=== PATIENT | female | born 2000 | race Caucasian/White ===

== ENCOUNTER 2020-01-31 18:10 | Emergency (ER) | payer OTHER ==
[2020-01-31] MEDS ORDERED: Acetaminophen/HYDROcodone 325-5 MG Tab PO ONE (18:48)
[2020-01-31] MEDS ORDERED: cefTRIAXone 250 MG in Lidocaine 1% 1 ML IM ONE (18:49)
[2020-01-31] MEDS ORDERED: Azithromycin 250 MG Tab PO STA (18:49)
[2020-01-31] MEDS ORDERED: Lidocaine 1% PF 2 ML SDV INJECT ONE (18:50)
[2020-01-31] MEDS ORDERED: valACYclovir 500 MG Tab PO ONE (18:50)
[2020-01-31] MEDS ORDERED: Lidocaine 5% Oint 35.44 GM Tube TOP ONE (18:52)
--- NOTE | 2020-01-31 18:56 | EDM.PDOC ---
ED HPI GENERAL MEDICAL PROBLEM - General Chief Complaint: General Stated Complaint: WOULD NOT DISCLOSE COMPLAINT Time Seen by Provider: 01/31/20 18:30 Source of Information: Reports: Patient History Limitations: Reports: No Limitations - History of Present Illness INITIAL COMMENTS - FREE TEXT/NARRATIVE: HISTORY AND PHYSICAL: History of present illness: Patient is a 19-year-old transgender female, who identifies as male - prefers to be called "Will", that presents to the ED with complaints of urinary retention and vaginal lesions. Reports that he and his boyfriend had unprotected sex with another male approximately 1 to 2 weeks ago. Since that time they both have noted some genital discharge. He had gone to his primary care provider and had blood, gonorrhea/chlamydia swab, and analysis done. He states that the STD screening has not returned but was given 3-day course of oral antibiotic for a UTI, taking the last dose yesterday. Today he noticed multiple lesions to his labia Review of systems: As per history of present illness and below otherwise all systems reviewed and negative. Past medical history: As per history of present illness and as reviewed below otherwise noncontributory. Surgical history: As per history of present illness and as reviewed below otherwise noncontributory. Social history: See social history for further information Family history: As per history of present illness and as reviewed below otherwise noncontributory. Physical exam: General: Well-developed and well-nourished 19-year-old female/male. And oriented. Nontoxic-appearing and in no acute distress. HEENT: Atraumatic, normocephalic, pupils equal and reactive bilaterally, negative for conjunctival pallor or scleral icterus, mucous membranes moist, trachea midline. No drooling or trismus noted. No meningeal signs. No hot potato voice noted. Lungs: Clear to auscultation, breath sounds equal bilaterally, chest nontender. Heart: S1S2, regular rate and rhythm without overt murmur Abdomen: Soft, nondistended, nontender. Negative for masses or hepatosplenomegaly. Negative for costovertebral tenderness. Pelvis: Stable nontender. Genitourinary: This was done with consent and a retail sales advisor at the bedside. Patient has multiple open lesions to the external genitalia, are very painful to touch. Copious amounts of vaginal discharge, clear thin and opaque. Skin: Intact, warm, dry. No lesions or rashes noted. Extremities: Atraumatic, moves all extremities per self without difficulty or deficits, negative for cords or calf pain. Neurovascular unremarkable. Neuro: Awake, alert, oriented. Cranial nerves II through XII unremarkable. Cerebellum unremarkable. Motor and sensory unremarkable throughout. Exam nonfocal. Notes: Bladder scanner shows over 900mls. Pelvic exam without speculum was done, samples/swabs sent to lab. At this time he would like to attempt oral pain medication and see if he can void on his own. He refusing straight/edmonds catheter. Patient was able to attempt to void twice, this was only small amounts. States that it is too painful to void, becomes tearful and anxious. A Edmonds catheter was placed to drain bladder. In small amounts approximately 1300 was drained from the bladder over a period of 15-20 minutes. Patient feels much better. We talked about leaving the catheter in place; he refuses. Signs and symptoms that would prompt him to return to the emergency room. Supportive care measures were reviewed and discussed. Voices understanding and is agreeable to plan of care. Denies any further questions or concerns at this time. Diagnostics: WALLACE, UA, HCGU, HSV Therapeutics: Valacyclovir, Lidocaine 5%, Rocephin/Azithromycin, [place] Prescription: Valacyclovir, Bactrim DS Impression: Urinary retention Herpes UTI Plan: 1. Please abstain from sexual intercourse until ALL the lab results have returned. Always use protection to minimized risk of STD exposure 2. Take the medications as directed. Herpes is not curable, you can take medications to help alleviate symptoms and prevent outbreaks. A short course has been prescribed to day; but further managed will need to be done by your primary care provider. 3. Today we gave you Rocephin and Azithromycin (treatment for Gonorrhea and Chlamydia). 4. Sitz baths may help the discomfort. Tylenol and/or Ibuprofen as needed for pain. 5. Please follow-up with your primary care provider as we discussed. Return to the ED as needed and as discussed. Definitive disposition and diagnosis as appropriate pending reevaluation and review of above. Bladder Pain Score (Numeric/FACES): 10 - Related Data Allergies Allergy/AdvReac Type Severity Reaction Status Date / Time banana Allergy Other Verified 01/31/20 18:30 latex Allergy Other Verified 01/31/20 18:30 Home Meds: Home Meds Amitriptyline [Elavil] 50 mg PO BEDTIME 01/31/20 [History] Escitalopram [Lexapro] 20 mg PO DAILY 01/31/20 [History] Sulfamethoxazole/Trimethoprim [Bactrim Ds Tablet] 1 each PO BID 7 Days #14 tablet 01/31/20 [Rx] buPROPion [Wellbutrin SR] 300 mg PO DAILY 01/31/20 [History] valACYclovir [Valtrex] 1,000 mg PO BID 10 Days #20 tab 01/31/20 [Rx] Past Medical History - Past Health History Medical/Surgical History: Denies Medical/Surgical History HEENT History: Reports: None Cardiovascular History: Reports: None Respiratory History: Reports: None Gastrointestinal History: Reports: None Genitourinary History: Reports: None BREAST SURGEON History: Reports: None Musculoskeletal History: Reports: None Neurological History: Reports: None Psychiatric History: Reports: None Endocrine/Metabolic History: Reports: None Hematologic History: Reports: None Immunologic History: Reports: None Oncologic (Cancer) History: Reports: None Dermatologic History: Reports: None - Infectious Disease History Infectious Disease History: Reports: Chicken Pox, Influenza - Past Surgical History Head Surgeries/Procedures: Reports: None HEENT Surgical History: Reports: Adenoidectomy, Tonsillectomy Cardiovascular Surgical History: Reports: None Respiratory Surgical History: Reports: None GI Surgical History: Reports: None Female Surgical History: Reports: None Endocrine Surgical History: Reports: None Neurological Surgical History: Reports: None Musculoskeletal Surgical History: Reports: Other (See Below) Other Musculoskeletal Surgeries/Procedures:: leg sx Oncologic Surgical History: Reports: None Dermatological Surgical History: Reports: None Social & Family History - Family History Family Medical History: Noncontributory - Tobacco Use Smoking Status *Q: Current Every Day Smoker Years of Tobacco use: 5 Packs/Tins Daily: 0.7 - Caffeine Use Caffeine Use: Reports: Soda - Recreational Drug Use Recreational Drug Use: Yes Recreational Drug Type: Reports: Marijuana/Hashish Recreational Drug Use Frequency: Rarely ED ROS GENERAL - Review of Systems Review Of Systems: Comprehensive ROS is negative, except as noted in HPI. ED EXAM, GENERAL - Physical Exam Exam: See Below (See dictation) Course - Vital Signs Last Recorded V/S: Last Vital Signs Temp 96.8 F L 01/31/20 18:32 Pulse 133 H 04/26/20 18:32 Resp 18 01/31/20 18:32 BP 166/97 H 01/31/20 18:32 Pulse Ox 98 01/31/20 18:32 - Orders/Labs/Meds Orders: Active Orders 24 hr Category Date Time Status Bladder Scan [RC] ASDIRECTED Care 01/31/20 18:46 Active Edmonds Catheter Insertion [Insert Urinary Catheter] [OM. Care 01/31/20 19:00 Ordered PC] Q24H Urinary Catheter Assessment [RC] ASDIRECTED Care 01/31/20 18:47 Active CULTURE URINE [RM] Stat Lab 01/31/20 19:41 Received HSV 1/2 PCR [REF] Stat Lab 01/31/20 18:46 Received Labs: Laboratory Tests 01/31/20 01/31/20 01/31/20 Range/Units 18:40 19:41 19:41 Urine Color YELLOW Urine Appearance CLOUDY Urine pH 6.5 (5.0-8.0) Ur Specific [place] >= 1.030 (1.001-1.035) Urine Protein 100 H (NEGATIVE) mg/dL Urine Glucose (UA) NEGATIVE (NEGATIVE) mg/dL Urine Ketones NEGATIVE (NEGATIVE) mg/dL Urine Occult Blood MODERATE H (NEGATIVE) Urine Nitrite NEGATIVE (NEGATIVE) Urine Bilirubin NEGATIVE (NEGATIVE) Urine Urobilinogen 0.2 (<2.0) EU/dL Ur Leukocyte Esterase LARGE H (NEGATIVE) Urine RBC 5-10 (0-2/HPF) Urine WBC 12-20 (0-5/HPF) Ur Epithelial Cells RARE (NONE-FEW) Urine Bacteria 1+ H (NEGATIVE) Urine Mucus LIGHT (NONE-MOD) Urine HCG, Qual NEGATIVE (NEGATIVE) Geena species DNA NEGATIVE (NEGATIVE) Gardnerella DNA Probe NEGATIVE (NEGATIVE) Trichomonas DNA Probe NEGATIVE (NEGATIVE) Meds: Medications Discontinued Medications Generic Name Dose Route Start Last Admin Trade Name Freq PRN Reason Stop Dose Admin Hydrocodone Bitart/Acetaminophen 1 tab 01/31/20 18:48 01/31/20 19:03 [place] 325-5 Mg PO 01/31/20 18:49 1 tab ONETIME ONE Administration Azithromycin 1,000 mg 01/31/20 18:49 01/31/20 19:24 Zithromax PO 01/31/20 18:50 1,000 mg NOW STA Administration Ceftriaxone Sodium 250 mg/ 1 mls @ 1 mls/sec 01/31/20 18:49 01/31/20 19:24 Lidocaine HCl IM 01/31/20 18:50 1 mls/sec ONETIME ONE Administration Lidocaine HCl 2 ml 01/31/20 18:50 01/31/20 19:20 Xylocaine-Mpf 1% INJECT 01/31/20 18:51 Not Given ONETIME ONE Lidocaine HCl 1 gm 01/31/20 18:52 01/31/20 19:50 Lidocaine 5% TOP 01/31/20 18:53 1 dose ONETIME ONE Administration Valacyclovir HCl 1,000 mg 01/31/20 18:50 01/31/20 19:25 Valtrex PO 01/31/20 18:51 1,000 mg ONETIME ONE Administration Departure - Departure Time of Disposition: 20:49 Disposition: Home, Self-Care 01 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 This information is to outline your options for follow-up care. We provide all patients seen in our emergency department with a follow-up referral. The need for follow-up, as well as the timing and circumstances, are variable depending upon the specifics of your emergency department visit. If you don't have a primary care physician on staff, we will provide you with a referral. We always advise you to contact your personal physician following an emergency department visit to inform them of the circumstance of the visit and for follow-up with them and/or the need for any referrals to a consulting specialist. The emergency department will also refer you to a specialist when appropriate. This referral assures that you have the opportunity for follow-up care with a specialist. All of these measure are taken in an effort to provide you with optimal care, which includes your follow-up. Under all circumstances we always encourage you to contact your private physician who remains a resource for coordinating your care. When calling for follow-up care, please make the office aware that this follow-up is from your recent emergency room visit. If for any reason you are refused follow-up, please contact the [facility] Emergency Department at and asked to speak to the emergency department charge nurse. [facility] Primary [facility] [address] [place] [address] [facility] [address] [place] [id number] 1. Please abstain from sexual intercourse until ALL the lab results have returned. Always use protection to minimized risk of STD exposure 2. Herpes is not curable, you can spread this to other people. Medications is available to help alleviate symptoms and prevent outbreaks. A short course has been prescribed to day; but further managed will need to be done by your primary care provider. 3. Take the medications as directed. Today we gave you Rocephin and Azithromycin (treatment for Gonorrhea and Chlamydia). The Bactrim is for your UTI. 4. Sitz baths may help the discomfort. Tylenol and/or Ibuprofen as needed for pain. 5. Please follow-up with your primary care provider as we discussed. Return to the ED as needed and as discussed. Sepsis Event Note - Evaluation Sepsis Screening Result: No Definite Risk - Focused Exam Vital Signs: Vital Signs Temp Pulse Resp BP Pulse Ox 01/31/20 18:32 96.8 F L 133 H 18 166/97 H 98 Date Exam was Performed: 01/31/20 Time Exam was Performed: 20:45 - My Orders Last 24 Hours: My Active Orders 01/31/20 18:46 Bladder Scan [RC] ASDIRECTED HSV 1/2 PCR [REF] Stat 01/31/20 18:47 Urinary Catheter Assessment [RC] ASDIRECTED 01/31/20 19:00 Edmonds Catheter Insertion [Insert Urinary Catheter] [OM.PC] Q24H 01/31/20 19:41 CULTURE URINE [RM] Stat - Assessment/Plan Last 24 Hours: My Active Orders 01/31/20 18:46 Bladder Scan [RC] ASDIRECTED HSV 1/2 PCR [REF] Stat 01/31/20 18:47 Urinary Catheter Assessment [RC] ASDIRECTED 01/31/20 19:00 Edmonds Catheter Insertion [Insert Urinary Catheter] [OM.PC] Q24H 01/31/20 19:41 CULTURE URINE [] Stat
== END 2020-01-31 21:10 | disposition home or self-care (01) ==
LOC: MW.ED 18:10
DX: R33.9 Retention of urine, unspecified (principal); B00.9 Herpesviral infection, unspecified; N39.0 Urinary tract infection, site not specified; F17.210 Nicotine dependence, cigarettes, uncomplicated; Z91.018 Allergy to other foods; Z91.040 Latex allergy status; Z79.899 Other long term (current) drug therapy
CPT/HCPCS: 51702; 51798; 81001; 81025; 87086; 87480; 87510; 87529; 87660; 96372; 99283; A9270; J0696; J2001; 99284

== ENCOUNTER 2020-02-01 20:01 | Emergency (ER) | payer OTHER ==
--- NOTE | 2020-02-01 20:30 | EDM.PDOC ---
ED HPI GENERAL MEDICAL PROBLEM - General Chief Complaint: Genitourinary Problem Stated Complaint: DID NOT DISCLOSE Time Seen by Provider: 02/01/20 20:04 Source of Information: Reports: Patient History Limitations: Reports: No Limitations - History of Present Illness INITIAL COMMENTS - FREE TEXT/NARRATIVE: HISTORY AND PHYSICAL: History of present illness: Patient is a 19-year-old female who identifies as male. I did see him yesterday in the emergency room for urinary retention, UTI and initial outbreak of herpes. Yesterday he was reluctant for a straight cath to drain 1200 cc of urine. He did refused to have a catheter in place after discussing options. After discharge to home he states he is still been unable to void. Otherwise has been taking the medications as prescribed. Offers no other complaints or concerns at this time. Review of systems: As per history of present illness and below otherwise all systems reviewed and negative. Past medical history: As per history of present illness and as reviewed below otherwise noncontributory. Surgical history: As per history of present illness and as reviewed below otherwise noncontributory. Social history: See social history for further information Family history: As per history of present illness and as reviewed below otherwise noncontributory. Physical exam: General: Developed and well-nourished 19-year-old female. Alert and oriented. Nontoxic-appearing and in no acute distress. HEENT: Atraumatic, normocephalic, pupils equal and reactive bilaterally, negative for conjunctival pallor or scleral icterus, mucous membranes moist, trachea midline. No drooling or trismus noted. No meningeal signs. No hot potato voice noted. Lungs: Clear to auscultation, breath sounds equal bilaterally. Heart: S1S2, regular rate and rhythm without overt murmur Abdomen: Soft, nondistended, suprapubic tenderness. Negative for masses or costovertebral tenderness. Genitourinary: The area looks improved since yesterday, herpetic lesions are still noted with minimal swelling of the external labia. Skin: Intact, warm, dry. No lesions or rashes noted. Extremities: Atraumatic, moves all extremities per self without difficulty or deficits, negative for cords or calf pain. Neurovascular unremarkable. Neuro: Awake, alert, oriented. Cranial nerves II through XII unremarkable. Cerebellum unremarkable. Motor and sensory unremarkable throughout. Exam nonfocal. Notes: Edmonds catheter was inserted. See nursing notes. Dr Thomason, urology chiropractor sole practitioner, was consulted on this case, he will see this patient at 1:30 on Saturday. This information was shared with the patient. States he is currently taking the medications that were prescribed yesterday. Supportive care measures were reviewed and discussed. Voices understanding and is agreeable to plan of care. Denies any further questions or concerns at this time. Diagnostics: None Therapeutics: Edmonds catheter inserted Prescription: None Impression: Urinary retention Plan: 1. Keep the edmonds in place until you follow up with Urology. Follow the edmonds care instructions that have been provided. Dr Thomason will see you on Saturday ( 02/03/20) at 1:30pm. Please arrive 15 minutes early. 2. Continue taking all your medications that were prescribed yesterday. 3. Return to the ED as needed and as discussed. Definitive disposition and diagnosis as appropriate pending reevaluation and review of above. - Related Data Allergies Allergy/AdvReac Type Severity Reaction Status Date / Time banana Allergy Other Verified 01/31/20 18:30 latex Allergy Rash Verified 02/01/20 20:14 Home Meds: Home Meds Amitriptyline [Elavil] 50 mg PO BEDTIME 01/31/20 [History] Escitalopram [Lexapro] 20 mg PO DAILY 01/31/20 [History] Sulfamethoxazole/Trimethoprim [Bactrim Ds Tablet] 1 each PO BID 7 Days #14 tablet 01/31/20 [Rx] buPROPion [Wellbutrin SR] 300 mg PO DAILY 01/31/20 [History] valACYclovir [Valtrex] 1,000 mg PO BID 10 Days #20 tab 01/31/20 [Rx] Past Medical History - Past Health History Medical/Surgical History: Denies Medical/Surgical History HEENT History: Reports: None Cardiovascular History: Reports: None Respiratory History: Reports: None Gastrointestinal History: Reports: None Genitourinary History: Reports: None COMMUNITY RELATIONS SPECIALIST History: Reports: None Musculoskeletal History: Reports: None Neurological History: Reports: None Psychiatric History: Reports: None Endocrine/Metabolic History: Reports: None Hematologic History: Reports: None Immunologic History: Reports: None Oncologic (Cancer) History: Reports: None Dermatologic History: Reports: None - Infectious Disease History Infectious Disease History: Reports: Chicken Pox, Influenza - Past Surgical History Head Surgeries/Procedures: Reports: None HEENT Surgical History: Reports: Adenoidectomy, Tonsillectomy Cardiovascular Surgical History: Reports: None Respiratory Surgical History: Reports: None GI Surgical History: Reports: None Female Surgical History: Reports: None Endocrine Surgical History: Reports: None Neurological Surgical History: Reports: None Musculoskeletal Surgical History: Reports: Other (See Below) Other Musculoskeletal Surgeries/Procedures:: leg sx Oncologic Surgical History: Reports: None Dermatological Surgical History: Reports: None Social & Family History - Family History Family Medical History: Noncontributory - Caffeine Use Caffeine Use: Reports: Soda ED ROS GENERAL - Review of Systems Review Of Systems: Comprehensive ROS is negative, except as noted in HPI. ED EXAM, RENAL/ - Physical Exam Exam: See Below (See dictation) Course - Vital Signs Last Recorded V/S: Last Vital Signs Temp 96.7 F L 02/01/20 20:11 Pulse 120 H 02/01/20 20:11 Resp 18 02/01/20 20:11 BP 121/82 02/01/20 20:11 Pulse Ox 96 02/01/20 20:11 - Orders/Labs/Meds Orders: Active Orders 24 hr Category Date Time Status Communication Order [RC] STAT Care 02/01/20 21:30 Ordered Edmonds Catheter Insertion [Insert Urinary Catheter] [OM. Care 02/01/20 20:15 Ordered PC] Q24H Urinary Catheter Assessment [RC] ASDIRECTED Care 02/01/20 20:11 Active Departure - Departure Time of Disposition: 21:48 Disposition: Home, Self-Care 01 Clinical Impression: Urinary retention - Discharge Information Instructions: Acute Urinary Retention, Female Referrals: Marcia Abbott MD [Primary Care Provider] - Forms: ED Department Discharge Additional Instructions: The following information is given to patients seen in the emergency department who are being discharged to home. This information is to outline your options for follow-up care. We provide all patients seen in our emergency department with a follow-up referral. The need for follow-up, as well as the timing and circumstances, are variable depending upon the specifics of your emergency department visit. If you don't have a primary care physician on staff, we will provide you with a referral. We always advise you to contact your personal physician following an emergency department visit to inform them of the circumstance of the visit and for follow-up with them and/or the need for any referrals to a consulting specialist. The emergency department will also refer you to a specialist when appropriate. This referral assures that you have the opportunity for follow-up care with a specialist. All of these measure are taken in an effort to provide you with optimal care, which includes your follow-up. Under all circumstances we always encourage you to contact your private physician who remains a resource for coordinating your care. When calling for follow-up care, please make the office aware that this follow-up is from your recent emergency room visit. If for any reason you are refused follow-up, please contact the [facility] Emergency Department at and asked to speak to the emergency department charge nurse. [facility] Specialty Care - Urology [address] [place] [id number] 1. Keep the edmonds in place until you follow up with Urology. Follow the edmonds care instructions that have been provided. Dr Thomason will see you on Saturday ( 02/03/20) at 1:30pm. Please arrive 15 minutes early. 2. Continue taking all your medications that were prescribed yesterday. 3. Return to the ED as needed and as discussed. Sepsis Event Note - Focused Exam Vital Signs: Vital Signs Temp Pulse Resp BP Pulse Ox 02/01/20 20:11 96.7 F L 120 H 18 121/82 96 Date Exam was Performed: 02/01/20 Time Exam was Performed: 21:46 - My Orders Last 24 Hours: My Active Orders 02/01/20 20:11 Urinary Catheter Assessment [RC] ASDIRECTED 02/01/20 20:15 Edmonds Catheter Insertion [Insert Urinary Catheter] [OM.PC] Q24H 02/01/20 21:30 Communication Order [RC] STAT - Assessment/Plan Last 24 Hours: My Active Orders 02/01/20 20:11 Urinary Catheter Assessment [RC] ASDIRECTED 02/01/20 20:15 Edmonds Catheter Insertion [Insert Urinary Catheter] [OM.PC] Q24H 02/01/20 21:30 Communication Order [RC] STAT
== END 2020-02-01 22:39 | disposition home or self-care (01) ==
LOC: MW.ED 20:01
DX: R33.9 Retention of urine, unspecified (principal); Z91.040 Latex allergy status; Z91.018 Allergy to other foods
CPT/HCPCS: 10021; 51702; 99283; 99283-25

== ENCOUNTER 2020-07-11 06:18 | Emergency (ER) | payer OTHER ==
[2020-07-11] MEDS ORDERED: Bacitracin Oint 1 GM U/D Packet TOP ONE (07:00)
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
[2020-07-11 07:50] LABS: ACETAMINOPHEN <2.0 ug/mL; BLOOD UREA NITROGEN,BUN 16 mg/dL (7.0-18.0); CARBON DIOXIDE,CO2 24.3 mmol/L (21.0-32.0); CHLORIDE,CL 104 mmol/L (98-107); GLUCOSE RANDOM 95 mg/dL (74-106); POTASSIUM,K 3.8 mmol/L (3.5-5.1); SODIUM,NA 139 mmol/L (136-145)
== END 2020-07-11 09:21 ==
LOC: MW.ED 06:18
DX: F32.9 Major depressive disorder, single episode, unspecified (principal); S51.812A Laceration without foreign body of left forearm, initial encounter; F17.210 Nicotine dependence, cigarettes, uncomplicated; Z91.040 Latex allergy status; Z91.018 Allergy to other foods; Z79.899 Other long term (current) drug therapy; X78.8XXA Intentional self-harm by other sharp object, initial encounter
CPT/HCPCS: 36415; 80053; 80305-QW; 80307; 81001; 81025; 83735; 84443; 85025; 93005; 93010; 99283; 99285-25

== ENCOUNTER 2024-04-04 14:30 | Emergency (ER) | payer SELFPAY ==
[2024-04-04] MEDS: Amoxicillin/Clavulanate K 875-125 MG Tab PO ONE (15:16)
[2024-04-04] MEDS: traMADol 50 MG Tab PO ONE (15:16)
== END 2024-04-04 15:26 | disposition home or self-care (01) ==
LOC: MW.ED 14:30
DX: H66.93 Otitis media, unspecified, bilateral (principal); Z91.040 Latex allergy status; Z91.018 Allergy to other foods
CPT/HCPCS: 99283; A9270